=== PATIENT | male | born 1945 | race Caucasian/White ===

== ENCOUNTER 2016-10-02 09:17 | Inpatient (IN) | payer OTHER, MEDICARE ==
[~2016-10-02] VITALS: Ht 170.2 cm; Wt 66.1 kg
[~2016-10-02 09:17] MED LIST: COMBIVENT200 INHALA IH; DuoNeb IH; Habitrol,Nicoderm CQ TD; LEXAPRO10 MG PO; OXCARBAZEPINE300 MG PO; PRAVASTATIN SOD20 MG PO; SYMBICORT60 INHALA1 IH; predniSONE PO
[2016-10-02 09:54] LABS: EOSINOPHIL (%) 0.3 % (0-5); HEMATOCRIT 44.1 % (38.0-50.0); IMMATURE GRANULOCYTE (%) 0.3 % (0.0-0.7); IMMATURE GRANULOCYTE COUNT 0.2 K/uL; LYMPHOCYTE COUNT 0.5 K/uL (1.0-2.8); MCH 32.2 PG (29.0-34.0); MCHC 33.8 G/DL (30.0-36.0); MCV 95.2 FL (86-99); MEAN PLAT.VOLUME 9.7 uM^3 (9.0-12.4); MONOCYTE (%) 8.6 % (3-12); MONOCYTE COUNT 0.6 K/uL (0-0.8); NEUTROPHIL (%) 83.7 % (45-76); NEUTROPHIL COUNT 6.1 K/uL (1.8-6.4); PLATELET COUNT 153 K/uL (156-360); RBC DIS.WIDTH-CV 12.6 % (11.8-14.6); RBC DIS.WIDTH-SD 42.7 % (39-53); RED BLOOD COUNT 4.63 M/uL (4.00-5.50); WHITE BLOOD COUNT 7.3 K/uL (4.1-10.2)
[2016-10-02 10:04] LABS: CHLORIDE 101 mEq/L (99-109); POTASSIUM 3.8 mEq/L (3.7-5.4); SODIUM 140 mEq/L (136-147)
[2016-10-02 10:06] LABS: GLUCOSE 123 mg/dL (70-99)
[2016-10-02 10:07] LABS: ANION GAP 14 MEQ/L (2-14)
[2016-10-02 10:08] LABS: TOTAL BILIRUBIN 0.8 mg/dL (0.0-1.0)
[2016-10-02 10:10] LABS: ALKALINE PHOSPHATASE 83 IU/L (3-129); GFR ESTIMATE (CALCULATED) > 59 mL/min/
[2016-10-02 10:11] LABS: UREA NITROGEN (BUN) 14 mg/dL (9-23)
[2016-10-02 10:16] LABS: TROP-I INTERPRETATION NEGATIVE; TROPONIN-I < 0.01 ng/mL (0.0-0.30)
[2016-10-02 10:36] LABS: INFLUENZA A VIRAL ANTIGEN NEGATIVE; INFLUENZA B VIRAL ANTIGEN NEGATIVE
[2016-10-02] MEDS ORDERED: DUONEB 2.5-0.5 M3 ML AEROSOL (15:10)
[2016-10-02] MEDS ORDERED: SPIRIVA1 INHALATI IH (15:10)
[2016-10-02] MEDS ORDERED: TYLENOL REGULA325 MG PO (15:11)
[2016-10-02] MEDS ORDERED: PROAIR HFA8.5 GM IH (15:11)
[2016-10-02] MEDS ORDERED: DELSYM30 MG/5 M1 PO (15:12)
[2016-10-02 17:00] VITALS: BP 140/65
[2016-10-02 19:08] LABS: TROP-I INTERPRETATION NEGATIVE; TROPONIN-I < 0.01 ng/mL (0.0-0.30)
[2016-10-02 23:44] VITALS: BP 136/68
[2016-10-03 04:03] VITALS: BP 147/71
[2016-10-03 11:58] VITALS: BP 132/66
[2016-10-03 15:30] VITALS: BP 157/91
[2016-10-03 19:23] VITALS: BP 148/84
[2016-10-03 23:50] VITALS: BP 165/91
[2016-10-04 03:12] VITALS: BP 136/89
[2016-10-04 07:23] VITALS: BP 161/80
[2016-10-04 11:18] VITALS: BP 134/72
[2016-10-04 14:54] VITALS: BP 133/77
[2016-10-05 00:04] VITALS: BP 153/86
[2016-10-05 08:10] VITALS: BP 144/86
[2016-10-05 11:10] VITALS: BP 143/77
[2016-10-05 15:47] VITALS: BP 159/76
[2016-10-06 00:18] VITALS: BP 145/69
[2016-10-06 07:35] VITALS: BP 168/76
[2016-10-06 15:17] VITALS: BP 139/78
[2016-10-06 23:52] VITALS: BP 128/73
[2016-10-07 07:31] VITALS: BP 162/89
[2016-10-07] MEDS ORDERED: FLUCONAZOLE200 MG PO (09:24)
[2016-10-07] MEDS ORDERED: AMLODIPINE BESYL5 MG PO (09:24)
[2016-10-07] MEDS ORDERED: PREDNISONE10 MG PO (09:24)
[2016-10-07] MEDS ORDERED: CEFDINIR300 MG PO (09:24)
== END 2016-10-07 13:02 | disposition home or self-care (01) | DRG 190 ==
LOC: EME 09:17 → EDOF 16:02 → 5WEST 17:33 → 5SOUTH 10-03 13:53 → 5WEST 10-03 13:53 → 5SOUTH 10-03 15:39
PROVIDERS: Emergency Medicine; Internal Medicine
DX: J44.1 Chronic obstructive pulmonary disease with (acute) exacerbation (principal); B37.1 Pulmonary candidiasis; J44.0 Chronic obstructive pulmonary disease with (acute) lower respiratory infection; J20.9 Acute bronchitis, unspecified; I10 Essential (primary) hypertension; E78.2 Mixed hyperlipidemia; F32.9 Major depressive disorder, single episode, unspecified; F17.210 Nicotine dependence, cigarettes, uncomplicated; Z99.81 Dependence on supplemental oxygen
CPT/HCPCS: 71010; 80053; 83605; 83880; 84484; 85025; 87070; 87106; 87205; 87502; 93005; 94640; 94640 76; 94644; 94760; 94799; 99202; 99281; 99285; G0378; J0696; J1100; J1650; J2920; J2930; J7030; J7050; J7644

== ENCOUNTER 2016-12-22 09:22 | Emergency (ER) | payer OTHER, MEDICARE ==
[~2016-12-22] VITALS: Ht 167.6 cm; Wt 66.0 kg
[~2016-12-22 09:22] MED LIST changes: +AMLODIPINE BESYL5 MG PO; +CEFDINIR300 MG PO; +DELSYM30 MG/5 M1 PO; +DUONEB 2.5-0.5 M3 ML AEROSOL; +FLUCONAZOLE200 MG PO; +PREDNISONE10 MG PO; +PROAIR HFA8.5 GM IH; +SPIRIVA1 INHALATI IH; +TYLENOL REGULA325 MG PO
[2016-12-22] MEDS ORDERED: LORTAB 5-325 M1 EACH PO (12:52)
[2016-12-22 14:24] VITALS: BP 135/90
== END 2016-12-22 14:25 | disposition home or self-care (01) ==
LOC: EME 09:22
PROC: 2W3TX1Z Immobilization of Left Foot using Splint (ICD-10-PCS; principal; 2016-12-22)
DX: S92.122A Displaced fracture of body of left talus, initial encounter for closed fracture (principal); S90.32XA Contusion of left foot, initial encounter; X50.1XXA Overexertion from prolonged static or awkward postures, initial encounter; Z88.8 Allergy status to other drugs, medicaments and biological substances
CPT/HCPCS: 73630; 99281; 99284